=== PATIENT | male | born 1975 | race Caucasian/White ===

== ENCOUNTER 2020-10-06 17:51 | Emergency (ER) | payer BC, OTHER ==
[2020-10-06 17:56] VITALS: BP 124/79; PULSE 68; TEMP 97.5; BMI 30.7
== END 2020-10-06 18:54 | disposition home or self-care (01) ==
LOC: JER 17:51
DX: R09.81 Nasal congestion (principal); Z11.52 Encounter for screening for COVID-19
CPT/HCPCS: 99283-25; C9803; U0003; U0005

== ENCOUNTER 2021-07-15 10:44 | Emergency (ER) | payer BC, OTHER ==
[2021-07-15 10:52] VITALS: BP 124/78; PULSE 73; TEMP 98.2; BMI 31.4
[2021-07-15] MEDS ORDERED: FLUORESCEIN NA 1 EA STRIP OS ONE (10:59)
[2021-07-15] MEDS ORDERED: TETRACAINE 0.5% OPHTH SOLN 2 ML BOTTLE ONE (10:59)
[2021-07-15] MEDS ORDERED: TETRACAINE 0.5% HCL 0.6ML DROPPER.BOTTLE OU ONE (10:59)
[2021-07-15] MEDS ORDERED: FLUORESCEIN NA 1 EA STRIP ONE (10:59)
== END 2021-07-15 11:28 | disposition home or self-care (01) ==
LOC: FER 10:44
DX: H57.12 Ocular pain, left eye (principal)
CPT/HCPCS: 99283-25

== ENCOUNTER 2021-11-12 14:00 | Emergency (ER) | payer OTHER ==
[2021-11-12 14:19] VITALS: BP 115/77; PULSE 76; RESP 16; TEMP 99.5; BMI 28.5
== END 2021-11-12 14:35 | disposition home or self-care (01) ==
LOC: FER 14:00
DX: Z00.00 Encounter for general adult medical examination without abnormal findings (principal)
CPT/HCPCS: 99281-25

== ENCOUNTER 2022-01-06 23:04 | Emergency (ER) | payer OTHER ==
[2022-01-06 23:11] VITALS: BP 124/85; PULSE 75; RESP 17; TEMP 98.2; BMI 30.1
[2022-01-06] MEDS ORDERED: DIPHTH,PERTUSS(ACELL),TET 0.5 ML DISP.SYRIN IM ONE (23:14)
== END 2022-01-06 23:24 | disposition home or self-care (01) ==
LOC: FER 23:04
PROC: 3E0234Z Introduction of Serum, Toxoid and Vaccine into Muscle, Percutaneous Approach (ICD-10-PCS; principal; 2022-01-06)
DX: S60.811A Abrasion of right wrist, initial encounter (principal); X78.9XXA Intentional self-harm by unspecified sharp object, initial encounter
CPT/HCPCS: 90471; 90715; 99284-25

== ENCOUNTER 2024-06-25 07:44 | Emergency (ER) | payer OTHER, BC ==
[2024-06-25 08:12] VITALS: BP 121/83; PULSE 86; RESP 20; TEMP 98.2; BMI 25.7
[2024-06-25] MEDS: HIV POST EXPOSURE PROPHYLAXIS KIT PO ONE (08:42)
[2024-06-25 12:15] LABS: HIV INTERPRETATION NEGATIVE (NEGATIVE)
[2024-06-25 12:16] LABS: HCV DIAGNOSTIC IN-HOUSE W/RFLX NON-REACTIVE (NONREACTIVE)
== END 2024-06-25 08:51 | disposition home or self-care (01) ==
LOC: FER 07:44
DX: Z77.21 Contact with and (suspected) exposure to potentially hazardous body fluids (principal)
CPT/HCPCS: 36415; 86803; 87389; 99283-25